=== PATIENT | female | born 1945 | race Caucasian/White ===

== ENCOUNTER 2018-11-12 12:57 | Inpatient (IN) | payer OTHER ==
[2018-11-01 09:11] LABS: APTT 23.6 Seconds (25.0-31.3)
[~2018-11-12] VITALS: Ht 170.2 cm; Wt 66.2 kg
--- NOTE | ~2018-11-12 | OP ---
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 PROCEDURE: Left total knee arthroplasty. SURGEON: Sánchez Chase DO EDUCATION CONSULTANT: Reagan Chase DO. ANESTHESIA: General LMA with an adductor block. COMPLICATIONS: None. ANTIBIOTICS: 2 grams Ancef IVPB 30 minutes prior to incision. ESTIMATED BLOOD LOSS: 75 mL. IMPLANTS: A Biomet Vanguard total knee system with a 71 mm fixed cruciate tibial plate with locking bar, 62.5 PS open box femoral left component, a 28 mm asymmetric patella, an 11 mm posterior stabilized tibial bearing. SPECIMENS: None. INDICATIONS FOR SURGERY: The patient is a 73-year-old female with longstanding severe degenerative joint disease and pain to her left knee with valgus deformity to the point where it is now unstable. She walks with antalgic gait and has a feeling it may give way. She has failed conservative treatment to date with weight loss, anti-inflammatories, exercise therapy, bracing, and use of a cane. Surgical intervention has been discussed with her in detail as well as nonsurgical treatment options. Risks, complications include but are not limited to neurovascular damage, infection, fracture, need for further surgery, failure of prosthesis, recall of the prosthesis, allergy developed to prosthesis, deep vein thrombosis, pulmonary emboli, rhabdomyolysis, leg length discrepancy, instability and even myocardial infarction [place] [address] OPERATIVE REPORT Name: ISABEL JUÁREZ Room: [address] IN ..#: [id number] Admission: 11/12/18 Attend Phys: Lolly Maxwell Discharge: Date of : 41 Report #: [id number] informed consent has been attached to chart, may refer to and her knee is marked preoperatively for timeout technique. DESCRIPTION OF PROCEDURE: The patient was taken to the operating suite and placed on the operating table in supine position. Following general LMA anesthetic, left leg was prepped and draped in the usual sterile fashion with tourniquet on the proximal left thigh. A timeout technique was utilized to verify appropriate surgical site, procedure and concerns. Tourniquet was inflated to 295 mmHg pressure. Midline incision was then made through skin and subcutaneous tissue down to the extensor mechanism of the knee. A medial parapatellar incision was then performed. The kneecap was everted. The knee was flexed to 120 degrees. All osteophytes were removed at this time. There was eburnated bone to the lateral joint line, both femur and tibia. There was extremely soft midportion of the patella indicating severe chondromalacia of the patella. The drill hole was made in the distal femur. The intramedullary guide was then placed. The guide was set for 5 degrees of valgus with a 10 mm cut from the most distal aspect of the femur. Once pinned into place, intramedullary guide was removed. The distal femoral cut was performed. Bony wafers were removed. The tibial guide was then applied in all planes, pinned into place at 8 mm from the highest point on the medial tibia. Appropriate slope alignment was noted. The proximal tibia was then resected. Bony wafer was removed as well as all meniscal structures. The anterior to posterior femoral guide was then utilized and the drill holes were made with 3-degree external rotation and the appropriate size of 4-in-1 cutting block was then impacted firmly into place, pinned into place. Anterior, posterior condylar cuts followed by anterior, posterior chamfer cuts were then performed. Cutting block was removed as well as all bony wafers. The box cutting guide was then applied. The anterior cruciate ligament, posterior cruciate ligament resected at this time. The box cut reamer was then utilized to allow for a posterior stabilized femoral component and knee. The box cutting guide was then removed. Copious irrigation carried out throughout the incision. The tibia was then measured. The appropriate tibial tray was aligned in all planes, pinned into place. A trial femoral component was then inserted and a trial reduction was performed. With the knee in extension and a [address] full extension is achieved. Excellent stability is noted. The knee is balanced equally in both flexion and extension. Anterior drawer was negative. The patella was then prepared with the knee in extension. The patella was treated with electrocautery to denervate the patella. It was then reamed with the Margareth reaming system to a size 14 mm remaining patellar button. The patella was then measured, drilled and the appropriate sized asymmetric patella implant was applied for trial. The knee showed excellent tracking anatomic in nature. Final component was then obtained, placed on the back table. Trial components were removed. The tibia was reamed and then prepared with a cruciform punch prior to removal of the tray. Copious irrigation carried out throughout the incision. Posterior capsular incision injected with the anesthetic solution. Next, one bag of Biomet cement was mixed on the back table. The cement was [address] [address] OPERATIVE REPORT Name: FRANCKISABEL Gia Room: [address] IN [facility].#: [id number] Admission: 11/12/18 Attend Phys: Lolly Maxwell Discharge: Date of : 41 Report #: [id number] placed onto the final components. It was then placed into the interstices of the bone starting with the tibia, then the femur, then the patella with pressurization across the bone. The tibial tray was impacted first, the femur was impacted second and the patella button was applied third. A trial spacer was placed in the knee. All excess cement was removed sharply. The knee was then checked for range of motion with a size 10 and a size 12. The final range of motion was excellent with the 10, slightly tight and a little bit stiff with the 12; therefore, the 11 mm spacer was obtained, placed into the knee. A locking bar was then placed. The knee was thoroughly irrigated. Tourniquet was deflated. Hemostasis achieved with use of electrocautery and direct pressure. Knee was held at 90 degrees of flexion with pressurization across the knee until complete cement hardening had occurred. The knee was closed with #1 Vicryl in [id number] fashion sutures to the quadriceps mechanism and extensor mechanism. A #1 Quill was then utilized to run the entire extensor mechanism in running fashion. Skin was reapproximated with 2-0 Monocryl subcutaneous sutures followed by running 3-0 Stratafix subcuticular suture to the skin. Prior to closure, the tissue was treated with the platelet-rich plasma tissue autograft. This was allowed to sit for over 5 minutes. The skin was then reinforced with Dermabond glue. A Mepilex dressing was applied. Thigh high MAXIMUS hose was applied. The patient tolerated the procedure well and was taken to recovery in stable condition. No complications were encountered. Final instrument counts, sponge counts correct x 2. Estimated blood loss 75 mL. By: [id number] 2017Sánchez Chase DO /brown
[~2018-11-12 12:57] MED LIST: ATORVASTATIN CA40 MG PO; CHLORTHALIDONE25 MG PO; LISINOPRIL10 MG PO; LOPRESSOR50 PO; NORVASC5 MG PO; SYNTHROID112 MC1 PO; TRAMADOL 50 MG50 MG PO; VENLAFAXINE HCL50 MG PO
[2018-11-12 14:00] VITALS: BP 128/67
[2018-11-13 05:54] LABS: HEMATOCRIT 33.9 % (37.0-47.0)
[2018-11-13 08:15] VITALS: BP 129/46
[2018-11-14] VITALS: BP 120/49
[2018-11-14 04:00] VITALS: BP 140/53
[2018-11-14 04:30] LABS: HEMATOCRIT 29.1 % (37.0-47.0); HEMOGLOBIN 9.8 gm/dL (12.0-15.0)
[2018-11-14 07:40] VITALS: BP 118/54
[2018-11-14] MEDS ORDERED: ELIQUIS2.5 MG PO (10:02)
[2018-11-14] MEDS ORDERED: ROXICODONE5 M2 PO (10:04)
[2018-11-14 10:05] VITALS: BP 118/54
[2018-11-14] MEDS ORDERED: ASPIRIN325 PO ×2 (10:25→13:11)
[2018-11-14 10:26] VITALS: BP 118/54
== END 2018-11-14 13:45 | disposition home or self-care (01) | DRG 470 ==
LOC: M.SUR 12:57 → M.ORTHSURG 18:10 → M.TBA 18:10 → M.ORTHSURG 19:55
PROVIDERS: Orthopaedic Surgery; ADMIT Internal Medicine
PROC: 0SRD0J9 Replacement of Left Knee Joint with Synthetic Substitute, Cemented, Open Approach (ICD-10-PCS; principal; 2018-11-12)
DX: M17.12 Unilateral primary osteoarthritis, left knee (principal); D62 Acute posthemorrhagic anemia; M21.062 Valgus deformity, not elsewhere classified, left knee; G14 Postpolio syndrome; Z88.1 Allergy status to other antibiotic agents; Z88.8 Allergy status to other drugs, medicaments and biological substances; Z90.710 Acquired absence of both cervix and uterus; Z90.49 Acquired absence of other specified parts of digestive tract; Z79.899 Other long term (current) drug therapy

== ENCOUNTER → 2019-11-25 | Outpatient (CLI) | payer OTHER ==
[~2019-11-25] MED LIST changes: +ASPIRIN325 PO; +ELIQUIS2.5 MG PO; +ROXICODONE5 M2 PO
== END ==
LOC: M.LAB 05:37
DX: E87.6 Hypokalemia (principal)

== ENCOUNTER → 2020-06-15 | Outpatient (CLI) | payer OTHER | LOC: M.LAB 03:32 | PROVIDERS: ATTEND Anesthesiology | DX: E87.6 Hypokalemia (principal) ==